=== PATIENT | female | born 1995 | race Caucasian/White ===

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

== ENCOUNTER 2017-06-05 15:29 | Inpatient (IN) | payer BC ==
[~2017-06-05] VITALS: Ht 160 cm; Wt 46.0 kg
--- NOTE | ~2017-06-05 | O ---
[place], [place] OPERATIVE NOTE NAME: DRE STRONG UNIT #: [id number] ROOM: 530 DOCTOR: JITENDRA PETERSEN MD BIRTHDATE: [birth year] DOS: 06/06/2017 PREOPERATIVE DIAGNOSIS: Left breast abscess. POSTOPERATIVE DIAGNOSIS: Left breast abscess. PROCEDURE: Incision and drainage, left breast abscess. SURGEON: Jitendra Petersen MD TATTOO ARTIST: GLORIA. ANESTHESIA: MAC with local 1% plain lidocaine. INDICATIONS: This is a 22-year-old lady with a history of left breast abscess who is here for the above-mentioned procedure. The procedure and its complications explained to the patient in detail preoperatively. Complications that were discussed included but were not limited to, bleeding, prolonged pain, and damage to underlying vital structures. She agreed to proceed. DESCRIPTION OF PROCEDURE: After identifying the patient, the patient was brought to the operating suite and laid in the supine position. After IV sedation was administered, a timeout procedure was called and parts were then painted and draped in the usual sterile fashion. Circumferential incision in the lower half of the breast was marked and local anesthesia (1% plain lidocaine) was infiltrated. Approximately an inch incision was made in the marked site and the abscess cavity was entered. Specimen was sent for culture and sensitivity. Thereafter, the entire abscess cavity was drained of its pus and saline was used for irrigation. Thereafter, one-quarter inch iodoform was placed in the breast abscess cavity and a dressing was placed. The patient tolerated the procedure well and was brought back to the recovery room in stable fashion. There were no complications. Dr. Jitendra Petersen, the attending surgeon, was present throughout the operating case. [place], [place] OPERATIVE NOTE NAME: DRE STRONG UNIT #: [id number] ROOM: 530 DOCTOR: JITENDRA PETERSEN MD BIRTHDATE: [birth year] Jitendra Petersen MD CM:OPRECORD:OPERATIVE NOTE [id number] JITENDRA PETERSEN MD 06/06/17 100 interface
[~2017-06-05 15:29] MED LIST changes: +Ciprofloxacin500 MG PO; +FLAGYL500 MG PO; +Zofran4 MG PO
[2017-06-05 15:42] VITALS: BP 100/68
[2017-06-05 16:12] LABS: BASO % 0.2 % (0.0-1.0); EOS # 0.1 10*3/uL (0.0-0.4); EOS % 0.5 % (1.0-4.0); HEMATOCRIT 38.3 % (37.0-47.0); HEMOGLOBIN 12.8 g/dl (12.0-16.0); LYMPH # 1.9 10*3/uL (1.3-4.4); LYMPH % 15.5 % (27.0-41.0); MEAN CELL VOLUME 92.5 fl (81.0-99.0); MEAN CORPUSCULAR HGB 30.9 pg (27.0-31.0); MEAN CORPUSCULAR HGB CONC 33.4 g/dl (33.0-37.0); MEAN PLATELET VOLUME 9.9 fl (9.6-12.3); MONO # 0.7 10*3/uL (0.1-1.0); MONO % 5.7 % (3.0-9.0); NEUT # 9.3 10*3/uL (2.3-7.9); NEUT % 77.8 % (47.0-73.0); PLATELET COUNT AUTOMATED 243 10*3/uL (130-400); RED BLOOD COUNT 4.14 10*6/uL (4.10-5.10); RED CELL DISTRI WIDTH 11.8 % (0-14.5); WHITE BLOOD COUNT 11.9 10*3/uL (4.8-10.8)
[2017-06-05 16:27] LABS: ALBUMIN 3.1 gm/dl (3.1-4.5); ALKALINE PHOSPHATASE 81 U/L (45-117); BUN 5 mg/dl (7-24); CHLORIDE 102 mmol/L (98-107); CREATININE 0.64 mg/dL (0.55-1.02); POTASSIUM 3.7 mmol/L (3.5-5.1); SGOT/AST 7 IU/L (3-35); SGPT/ALT 10 U/L (12-78); SODIUM 137 mmol/L (136-145); TOTAL PROTEIN 6.9 gm/dL (6.4-8.2)
[2017-06-05 19:05] VITALS: BP 108/61
--- NOTE | 2017-06-05 19:05 | NUR ---
Time: 1904 A 22 year old FEMALE admitted to 5E under services of ROXANNE ARVIZU DO. Pt. arrived via wheel chair from ER. Chief complaint: LEFT BREAST ABSCESS. BLAS DE GUZMAN
[2017-06-05 19:07] VITALS: BP 108/61
--- NOTE | 2017-06-05 19:54 | NUR ---
PATIENT MEDICATED WITH PO NORCO PER PRN ORDER FOR C/O LEFT BREAST PAIN 01/15. WILL MONITOR EFFECTIVENESS. CALL LIGHT LEFT IN REACH.
--- NOTE | 2017-06-05 20:13 | NUR ---
ATTEMPTED TO CALL 'S CELL PHONE AT THIS TIME REGARDING CONSULT. NO ANSWER. WILL TRY AGAIN.
--- NOTE | 2017-06-05 21:00 | NUR ---
SPOKE TO AT THIS TIME REGARDING CONSULT. INSTRUCTED TO KEEP PATIENT NPO AFTER MIDNIGHT. AWARE THAT PATIENT IS ON IVF AND IV ABX. NO OTHER ORDERS RECEIVED AT THIS TIME.
--- NOTE | 2017-06-05 22:49 | NUR ---
PATIENT STATES EARLIER NORCO HELPED SOME, BUT IS REQUESTING SOMETHING MORE FOR PAIN. STATES THAT PAIN IN LEFT BREAST IS ABOUT THE SAME, RATING IT A 7/10. IV MORPHINE ADMINISTERED SLOWLY PER PRN ORDER. WILL MONITOR EFFECTIVENESS. CALL LIGHT LEFT IN REACH.
--- NOTE | 2017-06-05 23:53 | NUR ---
PATIENT STATES EARLIER MORPHINE WAS EFFECTIVE FOR EASING HER PAIN. PATIENT NOW REQUESTING SOMETHING TO HELP HER SLEEP. PO RESTORIL ADMINISTERED PER PRN ORDER. WILL MONITOR EFFECTIVENESS. NPO STATUS AFTER MIDNIGHT REINFORCED. PATIENT VERBALIZES UNDERSTANDING.
[2017-06-05 23:56] VITALS: BP 109/72
[2017-06-06] VITALS (8 sets, daily range): BP systolic 89–100; BP diastolic 52–61
[2017-06-06] MEDS ORDERED: APRI 28 DAY TA1 EACH PO (00:33)
--- NOTE | 2017-06-06 00:39 | NUR ---
EARLIER MEDICATIONS APPEAR EFFECTIVE. PATIENT ASLEEP IN BED. RESPIRATIONS EASY. NO S/S OF DISTRESS NOTED. ON ROOM AIR. WILL MONITOR. CALL LIGHT IN REACH.
--- NOTE | 2017-06-06 03:29 | NUR ---
IV MORPHINE ADMINISTERED SLOWLY PER PATIENT REQUEST FOR C/O LEFT BREAST/MIDSTERNAL PAIN 03/18. PATIENT STATES SHE THINKS THIS PAIN IS ASSOCIATED WITH HER LEFT BREAST ABSCESS, BUT STATES "I DON'T KNOW IF IT COULD BE CHEST PAIN." PATIENT DESCRIBING PAIN A BURNING PAIN IN LEFT BREAST WITH INTERMITTENT SHARP STABBING MIDSTERNAL PAIN. HOSPITALIST TO BE NOTIFIED. WILL CONTINUE TO MONITOR. CALL LIGHT LEFT IN REACH.
--- NOTE | 2017-06-06 03:37 | NUR ---
ATTEMPTED TO CALL HOSPITALISTS TO NOTIFY OF PATIENT C/O CHEST PAIN. NO ANSWER AT THIS TIME. WILL TRY AGAIN.
--- NOTE | 2017-06-06 03:41 | NUR ---
DR.ALEX PRUITT RETURNED PHONE CALL. DISCUSSED PATIENT'S COMPLAINTS OF CHEST PAIN WITH HIM. STATES HE WILL BE UP TO SEE PATIENT.
--- NOTE | 2017-06-06 04:02 | NUR ---
UP TO SEE PATIENT AT THIS TIME. INSTRUCTED TO CONTINUE TO MONITOR PATIENT'S PAIN IN CHEST. NO OTHER ORDERS RECEIVED AT THIS TIME.
--- NOTE | 2017-06-06 04:09 | NUR ---
PATIENT STATES EARLIER MEDICATION WAS EFFECTIVE. WILL CONTINUE TO MONITOR. CALL LIGHT LEFT IN REACH.
[2017-06-06 06:28] LABS: BASO % 0.1 % (0.0-1.0); EOS # 0.1 10*3/uL (0.0-0.4); EOS % 0.5 % (1.0-4.0); HEMATOCRIT 36.5 % (37.0-47.0); HEMOGLOBIN 12.2 g/dl (12.0-16.0); LYMPH # 1.5 10*3/uL (1.3-4.4); LYMPH % 12.7 % (27.0-41.0); MEAN CELL VOLUME 91.9 fl (81.0-99.0); MEAN CORPUSCULAR HGB 30.7 pg (27.0-31.0); MEAN CORPUSCULAR HGB CONC 33.4 g/dl (33.0-37.0); MEAN PLATELET VOLUME 10.1 fl (9.6-12.3); MONO # 0.4 10*3/uL (0.1-1.0); MONO % 3.6 % (3.0-9.0); NEUT # 9.7 10*3/uL (2.3-7.9); NEUT % 82.8 % (47.0-73.0); PLATELET COUNT AUTOMATED 250 10*3/uL (130-400); RED BLOOD COUNT 3.97 10*6/uL (4.10-5.10); RED CELL DISTRI WIDTH 11.6 % (0-14.5); WHITE BLOOD COUNT 11.7 10*3/uL (4.8-10.8)
[2017-06-06 06:45] LABS: ALBUMIN 2.7 gm/dl (3.1-4.5); ALKALINE PHOSPHATASE 80 U/L (45-117); BUN 3 mg/dl (7-24); CHLORIDE 104 mmol/L (98-107); CHOLESTEROL 144 mg/dL (<200); CREATININE 0.68 mg/dL (0.55-1.02); FREE T4 1.28 ng/dl (0.76-1.46); HDL CHOLESTEROL 58 mg/dl (40-60); LDL CHOLESTEROL 71 mg/dL (9-159); PHOSPHOROUS 2.4 mg/dL (2.5-4.9); SGOT/AST 11 IU/L (3-35); SGPT/ALT 11 U/L (12-78); SODIUM 137 mmol/L (136-145); TOTAL PROTEIN 6.3 gm/dL (6.4-8.2); TRIGLYCERIDES 74 mg/dl (<150); VLDL CHOLESTEROL 15 mg/dL (6-40)
[2017-06-06 06:54] LABS: INTERNATIONAL NORM RATIO 1.1 (2.0-3.5)
[2017-06-06 07:19] LABS: VITAMIN D, 25-HYDROXY 14.1 ng/mL (30-100)
--- NOTE | 2017-06-06 08:30 | NUR ---
CIRCUIT BREAKER ASSEMBLER VS. PT OFF FLOOR AT PRESENT. WILL FOLLOW.
--- NOTE | 2017-06-06 08:50 | NUR ---
Unable to assess patient due to patient being off the floor for surgery.
--- NOTE | 2017-06-06 11:00 | NUR ---
ASKED PT AFTER SURGERY OW MORPHINE HELPED FOR PAIN. PT SAID PAIN RELIEF WAS SUCCESSFUL.
--- NOTE | 2017-06-06 20:19 | NUR ---
PT MEDICATED WITH NORCO FOR PAIN SHE RATES AT 610
--- NOTE | 2017-06-06 23:44 | NUR ---
PT MEDICATED WITH ZOFRAN FOR SYMPTOMS OF NAUSEA.
[2017-06-07] VITALS: BP 97/51
--- NOTE | 2017-06-07 06:00 | NUR ---
PT GIVEN ZOFRAN FOR COMPLAINTS OF NAUSEA
[2017-06-07 06:42] LABS: BASO % 0.2 % (0.0-1.0); EOS # 0.2 10*3/uL (0.0-0.4); EOS % 2.3 % (1.0-4.0); HEMATOCRIT 34.4 % (37.0-47.0); HEMOGLOBIN 11.3 g/dl (12.0-16.0); LYMPH # 2.1 10*3/uL (1.3-4.4); LYMPH % 20.2 % (27.0-41.0); MEAN CELL VOLUME 94.5 fl (81.0-99.0); MEAN CORPUSCULAR HGB CONC 32.8 g/dl (33.0-37.0); MEAN PLATELET VOLUME 10.4 fl (9.6-12.3); MONO # 0.7 10*3/uL (0.1-1.0); MONO % 7.1 % (3.0-9.0); NEUT # 7.2 10*3/uL (2.3-7.9); NEUT % 69.7 % (47.0-73.0); PLATELET COUNT AUTOMATED 230 10*3/uL (130-400); RED BLOOD COUNT 3.64 10*6/uL (4.10-5.10); RED CELL DISTRI WIDTH 11.9 % (0-14.5); WHITE BLOOD COUNT 10.4 10*3/uL (4.8-10.8)
[2017-06-07 07:00] LABS: BUN 6 mg/dl (7-24); CREATININE 0.48 mg/dL (0.55-1.02)
[2017-06-07] MEDS ORDERED: VITAMIN D31000 UNI1 PO (07:50)
[2017-06-07 08:00] VITALS: BP 98/54
--- NOTE | 2017-06-07 08:30 | NUR ---
CUSTOMER RETENTION SPECIALIST VS. SLEEPING SOUNDLY. DID NOT WAKEN WHEN I CALLED HER NAME.
--- NOTE | 2017-06-07 09:55 | NUR ---
PT GIVEN MORHPINE PRIOR TO DR. LEWIS ASSESSING THE INCISION SITE ON LEFT BREAST. WILL CONINUE TO MONITOR PT.
--- NOTE | 2017-06-07 10:56 | NUR ---
ATTEMPTED TO CALL HOPSITALIST ON DISCHARGE FOR PT TODAY. WILL TRY AGAIN LATER.
--- NOTE | 2017-06-07 11:00 | NUR ---
ATTEMPTED TO CONTACT WOUND CARE ON RECENT ORDERS. WILL TRY AGAIN LATER.
--- NOTE | 2017-06-07 11:15 | NUR ---
DR. VOSS MADE AWARE OF POSSIBLE DISCHARGE FOR PT PER DR. LEWIS. WILL CONINUE TO MONITOR PT.
--- NOTE | 2017-06-07 11:36 | NUR ---
SPOKE TO THE NURSING INFORMATICS DEVELOPER ABOUT RECENT PICTURES AND ORDERS ON PT.
[2017-06-07 12:00] VITALS: BP 100/57
[2017-06-07] MEDS ORDERED: DOXYCYCLINE100 M3 PO (12:11)
[2017-06-07] MEDS ORDERED: DIFLUCAN150 MG PO (12:12)
[2017-06-07] MEDS ORDERED: PHENERGAN25 M3 PO (12:13)
[2017-06-07] MEDS ORDERED: NORCO 5-325 TA1 EACH PO (12:14)
--- NOTE | 2017-06-07 13:51 | NUR ---
Discharge instructions reviewed with patient/family. Patient receptive and verbalizes understanding. Follow-up care arranged. Written/verbal instructions given to patient/family. RICH BLEDSOE
--- NOTE | 2017-06-07 13:54 | NUR ---
NOTIFIED OF REQUESTED FLU SHOT. NEW ORDERS.
== END 2017-06-07 13:35 | disposition home or self-care (01) | DRG 601 ==
LOC: ED 15:29 → EDHOLD 17:53 → 5E 17:53
PROVIDERS: Hospitalist; Physician Assistant; ADMIT Emergency Medicine
PROC: 0H9U0ZZ Drainage of Left Breast, Open Approach (ICD-10-PCS; principal; 2017-06-06)
DX: N61.1 Abscess of the breast and nipple (principal); D72.829 Elevated white blood cell count, unspecified; F17.210 Nicotine dependence, cigarettes, uncomplicated; Z71.6 Tobacco abuse counseling; Z88.1 Allergy status to other antibiotic agents; Z88.2 Allergy status to sulfonamides; Z87.828 Personal history of other (healed) physical injury and trauma

== ENCOUNTER 2019-02-11 18:32 | Emergency (ER) | payer BC ==
[~2019-02-11] VITALS: Ht 160 cm; Wt 52.2 kg
[~2019-02-11 18:32] MED LIST changes: +APRI 28 DAY TA1 EACH PO; +DIFLUCAN150 MG PO; +DOXYCYCLINE100 M3 PO; +NORCO 5-325 TA1 EACH PO; +PHENERGAN25 M3 PO; +VITAMIN D31000 UNI1 PO
== END 2019-02-11 18:52 | disposition home or self-care (01) ==
LOC: ED 18:32
DX: T63.441A Toxic effect of venom of bees, accidental (unintentional), initial encounter (principal); L29.8 Other pruritus; F17.200 Nicotine dependence, unspecified, uncomplicated; Z88.2 Allergy status to sulfonamides; Z79.899 Other long term (current) drug therapy; Y92.89 Other specified places as the place of occurrence of the external cause

== ENCOUNTER → 2019-06-24 | Outpatient (CLI) | payer BC | END | disposition home or self-care (01) | LOC: LAB 15:08 | DX: N39.0 Urinary tract infection, site not specified (principal) ==

== ENCOUNTER 2019-09-13 21:53 | Emergency (ER) | payer BC ==
[~2019-09-13] VITALS: Ht 160 cm; Wt 49.9 kg
[2019-09-13] MEDS ORDERED: PRENATAL ONE D1 EACH PO (22:34)
== END 2019-09-13 22:36 | disposition home or self-care (01) ==
LOC: ED 21:53
DX: Z32.01 Encounter for pregnancy test, result positive (principal); Z88.2 Allergy status to sulfonamides; Z79.899 Other long term (current) drug therapy

== ENCOUNTER → 2019-09-30 | Outpatient (CLI) | payer BC ==
[~2019-09-30] MED LIST changes: +PRENATAL ONE D1 EACH PO
== END | disposition home or self-care (01) ==
LOC: US 12:53
DX: O34.81 Maternal care for other abnormalities of pelvic organs, first trimester (principal); N83.12 Corpus luteum cyst of left ovary; Z3A.01 Less than 8 weeks gestation of pregnancy

== ENCOUNTER 2020-11-03 08:55 | Emergency (ER) | payer OTHER ==
[~2020-11-03] VITALS: Ht 160 cm; Wt 62.1 kg
[2020-11-03 09:36] LABS: BASO % 0.3 % (0.0-1.0); EOS # 0.1 10*3/uL (0.0-0.4); HEMATOCRIT 42.9 % (37.0-47.0); LYMPH # 1.3 10*3/uL (1.3-4.4); LYMPH % 18.8 % (27.0-41.0); MEAN CELL VOLUME 88.8 fl (81.0-99.0); MEAN CORPUSCULAR HGB 29.4 pg (27.0-31.0); MEAN CORPUSCULAR HGB CONC 33.1 g/dl (33.0-37.0); MEAN PLATELET VOLUME 10.2 fl (9.6-12.3); MONO # 0.5 10*3/uL (0.1-1.0); MONO % 6.9 % (3.0-9.0); NEUT # 5.2 10*3/uL (2.3-7.9); NEUT % 72.7 % (47.0-73.0); PLATELET COUNT AUTOMATED 239 10*3/uL (130-400); RED BLOOD COUNT 4.83 10*6/uL (4.10-5.10); RED CELL DISTRI WIDTH 14.2 % (0-14.5); WHITE BLOOD COUNT 7.1 10*3/uL (4.8-10.8)
[2020-11-03 09:37] LABS: BILIRUBIN Negative (Negative); BLOOD Negative (Negative); CLARITY Cloudy (Clear); COLOR Yellow (Yellow); GLUCOSE Negative (Negative); KETONE Negative (Negative); LEUKO ESTERASE 1+ (Negative); NITRITE Negative (Negative); SPECIFIC GRAVITY 1.025 (1.001-1.030)
[2020-11-03 09:38] LABS: PH 8.5 (4.5-8.0)
[2020-11-03 09:48] LABS: BACTERIA 2+; EPITHELIAL CELLS TNTC; MUCOUS TRACE; RBC 0-2 rbc/hpf (0-2)
[2020-11-03 09:50] LABS: ALBUMIN 4.1 gm/dl (3.1-4.5); ALKALINE PHOSPHATASE 92 U/L (45-117); BUN 11 mg/dl (7-24); CHLORIDE 112 mmol/L (98-107); CREATININE 0.62 mg/dL (0.55-1.02); POTASSIUM 3.7 mmol/L (3.5-5.1); SGOT/AST 11 IU/L (3-35); SGPT/ALT 18 U/L (12-78); SODIUM 142 mmol/L (136-145); TOTAL PROTEIN 7.6 gm/dL (6.4-8.2)
[2020-11-03 09:53] LABS: B-hCG (QUALITATIVE) NEGATIVE (NEGATIVE)
[2020-11-03] MEDS ORDERED: ZOFRAN4 MG PO (12:49)
== END 2020-11-03 13:09 | disposition home or self-care (01) ==
LOC: ED 08:55
PROVIDERS: Emergency Medicine
DX: R11.2 Nausea with vomiting, unspecified (principal); Z88.2 Allergy status to sulfonamides; Z88.8 Allergy status to other drugs, medicaments and biological substances; Z79.899 Other long term (current) drug therapy; Z98.890 Other specified postprocedural states

== ENCOUNTER 2022-03-05 03:56 | Emergency (ER) | payer OTHER ==
[~2022-03-05] VITALS: Ht 160 cm; Wt 52.2 kg
[~2022-03-05 03:56] MED LIST changes: +ZOFRAN4 MG PO
[2022-03-05 04:35] LABS: BASO % 0.3 % (0.0-1.0); EOS # 0.1 10*3/uL (0.0-0.4); EOS % 1.1 % (1.0-4.0); HEMATOCRIT 44.4 % (37.0-47.0); LYMPH # 1.7 10*3/uL (1.3-4.4); LYMPH % 17.3 % (27.0-41.0); MEAN CORPUSCULAR HGB 31.4 pg (27.0-31.0); MEAN CORPUSCULAR HGB CONC 34.5 g/dl (33.0-37.0); MEAN PLATELET VOLUME 9.7 fl (9.6-12.3); MONO # 0.5 10*3/uL (0.1-1.0); MONO % 5.2 % (3.0-9.0); NEUT # 7.4 10*3/uL (2.3-7.9); NEUT % 75.8 % (47.0-73.0); PLATELET COUNT AUTOMATED 271 10*3/uL (130-400); RED BLOOD COUNT 4.88 10*6/uL (4.10-5.10); RED CELL DISTRI WIDTH 12.6 % (0-14.5); WHITE BLOOD COUNT 9.8 10*3/uL (4.8-10.8)
[2022-03-05 04:46] LABS: INTERNATIONAL NORM RATIO 1.1 (2.0-3.5)
[2022-03-05 04:52] LABS: ALKALINE PHOSPHATASE 72 U/L (45-117); BUN 10 mg/dl (7-24); CHLORIDE 106 mmol/L (98-107); CREATININE 0.74 mg/dL (0.55-1.02); POTASSIUM 3.1 mmol/L (3.5-5.1); SGOT/AST 15 IU/L (3-35); SGPT/ALT 22 U/L (12-78); SODIUM 139 mmol/L (136-145)
== END 2022-03-05 07:47 | disposition home or self-care (01) ==
LOC: ED 03:56
PROVIDERS: Emergency Medicine
DX: F14.129 Cocaine abuse with intoxication, unspecified (principal); R07.89 Other chest pain; R06.02 Shortness of breath; F17.210 Nicotine dependence, cigarettes, uncomplicated; Z88.2 Allergy status to sulfonamides; Z90.89 Acquired absence of other organs

== ENCOUNTER 2024-02-05 05:12 | Emergency (ER) | payer OTHER ==
[~2024-02-05] VITALS: Ht 160 cm; Wt 56.7 kg
[2024-02-05] MEDS ORDERED: Hydrocortisone Sodium Succin 250 MG/2 ML VIAL IM ONE (06:00)
[2024-02-05] MEDS ORDERED: VIBRAMYCIN100 MG PO (06:38)
[2024-02-05] MEDS ORDERED: BENADRYL ALLERG25 M5 PO (06:38)
[2024-02-05] MEDS ORDERED: Doxycycline Hyclate 100 MG CAP PO ONE (06:40)
[2024-02-05] MEDS ORDERED: diphenhydrAMINE hydrochloride 25 MG CAP PO ONE (06:40)
== END 2024-02-05 06:42 | disposition home or self-care (01) ==
LOC: ED 05:12
DX: R60.0 Localized edema (principal); K13.0 Diseases of lips; F17.210 Nicotine dependence, cigarettes, uncomplicated; Z88.2 Allergy status to sulfonamides; Z90.89 Acquired absence of other organs; Z97.5 Presence of (intrauterine) contraceptive device

== ENCOUNTER 2024-10-10 14:04 | Emergency (ER) | payer OTHER ==
[~2024-10-10] VITALS: Ht 160 cm; Wt 61.2 kg
[~2024-10-10 14:04] MED LIST changes: +BENADRYL ALLERG25 M5 PO; +VIBRAMYCIN100 MG PO
[2024-10-10] MEDS ORDERED: Ondansetron Hydrochloride 4 MG/2 ML VIAL IV ONE (14:45)
[2024-10-10] MEDS ORDERED: SODIUM CHLORIDE 0.9% 1,000 ML IV ONE (14:45)
[2024-10-10] MEDS ORDERED: IOHEXOL 300 MG/ML 100 ML VIAL IV ONE (14:45)
[2024-10-10] MEDS ORDERED: MORPHINE Sulfate 2 MG/ML SYR IV ONE (14:50)
[2024-10-10 14:53] LABS: BASO % 0.3 % (0.0-1.0); EOS # 0.2 10*3/uL (0.0-0.4); EOS % 3.4 % (1.0-4.0); HEMATOCRIT 40.2 % (37.0-47.0); MEAN CELL VOLUME 95.3 fl (81.0-99.0); MEAN CORPUSCULAR HGB 31.8 pg (27.0-31.0); MEAN CORPUSCULAR HGB CONC 33.3 g/dl (33.0-37.0); MEAN PLATELET VOLUME 9.8 fl (9.6-12.3); MONO # 0.4 10*3/uL (0.1-1.0); MONO % 6.1 % (3.0-9.0); NEUT # 3.2 10*3/uL (2.3-7.9); NEUT % 54.8 % (47.0-73.0); PLATELET COUNT AUTOMATED 205 10*3/uL (130-400); RED BLOOD COUNT 4.22 10*6/uL (4.10-5.10); RED CELL DISTRI WIDTH 12.4 % (0-14.5); WHITE BLOOD COUNT 5.9 10*3/uL (4.8-10.8)
[2024-10-10 15:07] LABS: BILIRUBIN Negative (Negative); BLOOD Trace-Intact (Negative); CLARITY Clear (Clear); COLOR Yellow (Yellow); GLUCOSE Negative (Negative); KETONE Negative (Negative); LEUKO ESTERASE Negative (Negative); NITRITE Negative (Negative)
[2024-10-10 15:14] LABS: ALKALINE PHOSPHATASE 55 U/L (46-116); BUN 13 mg/dl (9-23); CHLORIDE 107 mmol/L (98-107); LIPASE 31 U/L (12-53); POTASSIUM 3.8 mmol/L (3.4-5.1); SGPT/ALT 8 U/L (5-49); TOTAL PROTEIN 6.7 gm/dL (6.0-8.0)
[2024-10-10 15:22] LABS: BACTERIA TRACE; MUCOUS 1+; WBC 0-2 wbc/hpf (0-5)
[2024-10-10] MEDS ORDERED: Ketorolac Tromethamine 30 MG/ML VIAL IV ONE (15:45)
[2024-10-10] MEDS ORDERED: PEPCID20 MG PO (15:59)
[2024-10-10] MEDS ORDERED: OMEPRAZOLE MAGN20 MG PO (15:59)
== END 2024-10-10 16:20 | disposition home or self-care (01) ==
LOC: ED 14:04
PROVIDERS: Physician Assistant Medical
DX: K29.70 Gastritis, unspecified, without bleeding (principal); T50.995A Adverse effect of other drugs, medicaments and biological substances, initial encounter; R11.2 Nausea with vomiting, unspecified; Z88.2 Allergy status to sulfonamides; Z79.899 Other long term (current) drug therapy; Z87.891 Personal history of nicotine dependence; Y92.89 Other specified places as the place of occurrence of the external cause

== ENCOUNTER 2024-11-15 20:11 | Emergency (ER) | payer OTHER ==
[~2024-11-15] VITALS: Ht 160 cm; Wt 61.2 kg
[~2024-11-15 20:11] MED LIST changes: +OMEPRAZOLE MAGN20 MG PO; +PEPCID20 MG PO
[2024-11-15] MEDS ORDERED: Acetaminophen/Hydrocodone 5 MG/325 MG TABLET PO ONE (21:15)
[2024-11-15] MEDS ORDERED: ACETAMINOPHEN 325 MG TAB PO ONE (21:40)
== END 2024-11-15 23:03 | disposition home or self-care (01) ==
LOC: ED 20:11
DX: S63.502A Unspecified sprain of left wrist, initial encounter (principal); F17.210 Nicotine dependence, cigarettes, uncomplicated; Z90.89 Acquired absence of other organs; Z79.899 Other long term (current) drug therapy; Z88.2 Allergy status to sulfonamides; W18.09XA Striking against other object with subsequent fall, initial encounter; Y93.89 Activity, other specified; Y92.89 Other specified places as the place of occurrence of the external cause; Y99.8 Other external cause status

== ENCOUNTER 2025-06-22 21:14 | Emergency (ER) | payer OTHER ==
[~2025-06-22] VITALS: Ht 160 cm; Wt 63.5 kg
[2025-06-22] MEDS ORDERED: SODIUM CHLORIDE 0.9% 1,000 ML IV ONE (21:55)
[2025-06-22] MEDS ORDERED: Metoclopramide Hydrochloride 10 MG/2 ML VIAL IV ONE (21:55)
[2025-06-22] MEDS ORDERED: diphenhydrAMINE hydrochloride 50 MG/ML VIAL IV ONE (21:55)
[2025-06-22] MEDS ORDERED: Dexamethasone Sodium Phospha 10 MG/1 ML VIAL IV ONE (21:55)
[2025-06-22 22:15] LABS: BASO # 0.0 10*3/uL (0.0-0.1); BASO % 0.2 % (0.0-1.0); EOS # 0.0 10*3/uL (0.0-0.4); EOS % 0.2 % (1.0-4.0); MEAN CELL VOLUME 93.6 fl (81.0-99.0); MEAN CORPUSCULAR HGB 31.6 pg (27.0-31.0); MEAN PLATELET VOLUME 9.7 fl (9.6-12.3); MONO # 0.4 10*3/uL (0.1-1.0); MONO % 9.4 % (3.0-9.0); NEUT # 3.9 10*3/uL (2.3-7.9); NEUT % 84.3 % (47.0-73.0); NUCLEATED RED BLOOD CELL 0.0 % (0.0-0.0); NUCLEATED RED BLOOD CELL 0.0 10*3/uL (0.0-0.0); PLATELET COUNT AUTOMATED 193 10*3/uL (130-400); RED CELL DISTRI WIDTH 12.5 % (0-14.5)
[2025-06-22 22:42] LABS: BUN 11 mg/dl (9-23)
[2025-06-22] MEDS ORDERED: ACETAMINOPHEN 325 MG TAB PO ONE (23:20)
[2025-06-22] MEDS ORDERED: Phenergan25 MG PO (23:23)
[2025-06-22] MEDS ORDERED: NAPROSYN500 MG PO (23:23)
== END 2025-06-22 23:57 | disposition home or self-care (01) ==
LOC: ED 21:14
PROVIDERS: Nurse Practitioner Family
DX: B34.9 Viral infection, unspecified (principal); F17.200 Nicotine dependence, unspecified, uncomplicated; Z20.822 Contact with and (suspected) exposure to COVID-19; Z87.19 Personal history of other diseases of the digestive system